=== PATIENT | female | born 1995 | race Caucasian/White ===

== ENCOUNTER 2021-07-07 13:31 | Emergency (ER) | payer MEDICAID, SELFPAY ==
[~2021-07-07] VITALS: Ht 162.6 cm; Wt 81.2 kg
[2021-07-07 13:36] VITALS: BP 96/40
--- NOTE | 2021-07-07 13:40 | NUR ---
C/O FEVER, PARRA, N/V , 05/25 ABD PAIN, FEVER, SORE THROAT, FATIQUE X 2 DAYS.
--- NOTE | 2021-07-07 14:19 | NUR ---
COVID MARY, COVID PCR & FLU SWABS DONE.
[2021-07-07] MEDS ORDERED: ONDANSETRON 4 MG ODT PO ONE (15:35)
[2021-07-07] MEDS ORDERED: IBUP-2218 PO (15:44)
[2021-07-07] MEDS ORDERED: TAM75 PO (15:44)
[2021-07-07] MEDS ORDERED: ONDA-24 SL (15:44)
[2021-07-07] MEDS ORDERED: CEPH-588 PO (15:44)
[2021-07-07] MEDS ORDERED: PROM118S5 PO (15:44)
[2021-07-07 16:07] VITALS: BP 96/40
--- NOTE | 2021-07-07 16:08 | NUR ---
Patient discharged with v/s stable. Written and verbal after care instructions given and explained. Patient alert, oriented and verbalized understanding of instructions. Ambulatory with steady gait. All questions addressed prior to discharge. ID band removed. Patient advised to follow up with PMD. Rx of IBUPROFEN, CEPHALEXIN, ONDANSETRON, PROMETHAZINE, OSELTAMIVIR given. Patient educated on indication of medication including possible reaction and side effects. Opportunity to ask questions provided and answered.
== END 2021-07-07 16:08 | disposition home or self-care (01) ==
LOC: MED 13:31
DX: B34.9 Viral infection, unspecified (principal); N39.0 Urinary tract infection, site not specified; Z20.822 Contact with and (suspected) exposure to COVID-19
CPT/HCPCS: 81002; 81025; 87086; 87426; 87804; 99283; Q0162; U0003